=== PATIENT | female | born 1995 | race Caucasian/White ===

== ENCOUNTER 2016-11-05 08:10 | Emergency (ER) | payer SELFPAY ==
[2016-11-05 09:11] LABS: Bacteria,Urine 1+ /HPF (Negative); Bilirubin,Urine NEG (Negative); Blood,Urine NEG (Negative); Ketones,Urine NEG (Negative); Leukocyte Esterase,Urine NEG (Negative); Mucus,Urine 3+ /HPF; Nitrite,Urine NEG (Negative); Urobilinogen,Urine < 2.0 mg/dL (<2.0)
[2016-11-05 09:13] LABS: RBC,Urine < 1.0 /HPF (0.0-6.0)
--- NOTE | 2016-11-05 11:35 | Emergency Department Report ---
ED Female HPI - General Chief complaint: Urogenital-Female Stated complaint: NAUSEA/DISCHARGE/FATIGUE Time Seen by Provider: 11/05/16 11:00 Source: patient Mode of arrival: Ambulatory Limitations: No Limitations - History of Present Illness Initial comments: 21-year-old female with past medical history PID, chlamydia presents with complaint of one to 2 days of mild suprapubic discomfort and whitish vaginal discharge. Dates her last menstrual period was 10/27/16. Denies any fevers or chills slight nausea but no vomiting. Currently sexually active. States she has had an IUD in place for approximately 2 years Complaint: vaginal discharge Onset/Timin -: days(s) Location: suprapubic Radiation: non-radiating Severity: moderate Severity scale (0 -10): 5 Quality: aching Improves with: none Worsens with: none Are you Now?: No Last Menstrual Period: 10/27/16 EDC: 08/03/17 Associated Symptoms: denies other symptoms - Related Data Sexually active: Yes Previous Rx's Medication Instructions Recorded Last Taken Type Doxycycline [Vibramycin CAP] 100 mg PO Q12HR #28 capsule 11/05/16 Unknown Rx Allergies Allergy/AdvReac Type Severity Reaction Status Date / Time No Known Allergies Allergy Unverified 11/05/16 08:16 ED Review of Systems ROS: Stated complaint: NAUSEA/DISCHARGE/FATIGUE Other details as noted in HPI Constitutional: denies: chills, fever Eyes: denies: eye pain, eye discharge, vision change ENT: denies: ear pain, throat pain Respiratory: denies: cough, shortness of breath, wheezing Cardiovascular: denies: chest pain, palpitations Endocrine: no symptoms reported Gastrointestinal: denies: abdominal pain, nausea, diarrhea Genitourinary: as per HPI. denies: urgency, dysuria, discharge Musculoskeletal: denies: back pain, joint swelling, arthralgia Skin: denies: rash, lesions Neurological: denies: headache, weakness, paresthesias Psychiatric: denies: anxiety, depression Hematological/Lymphatic: denies: easy bleeding, easy bruising ED Past Medical Hx - Past Medical History Previous Medical History?: No - Surgical History Past Surgical History?: Yes Additional Surgical History: right arm surgery - Social History Smoking Status: Current Every Day Smoker Substance Use Type: Alcohol, Marijuana, Non Opiate Pain - Medications Home Medications: Home Medications Medication Instructions Recorded Confirmed Last Taken Type Doxycycline [Vibramycin CAP] 100 mg PO Q12HR #28 capsule 11/05/16 Unknown Rx ED Physical Exam - General Limitations: No Limitations General appearance: alert, in no apparent distress - Head Head exam: Present: atraumatic, normocephalic - Eye Eye exam: Present: normal appearance, PERRL, EOMI - ENT ENT exam: Present: mucous membranes moist - Neck Neck exam: Present: normal inspection - Respiratory Respiratory exam: Present: normal lung sounds bilaterally. Absent: respiratory distress - Cardiovascular Cardiovascular Exam: Present: regular rate, normal rhythm. Absent: systolic murmur, diastolic murmur, rubs, gallop - GI/Abdominal GI/Abdominal exam: Present: soft, normal bowel sounds - External exam: Present: normal external exam Speculum exam: Present: normal speculum exam Bi-manual exam: Present: normal bi-manual exam - Extremities Exam Extremities exam: Present: normal inspection, tenderness - Back Exam Back exam: Present: normal inspection, full ROM - Neurological Exam Neurological exam: Present: alert, oriented X3, CN II-XII intact, normal gait - Psychiatric Psychiatric exam: Present: normal affect, normal mood - Skin Skin exam: Present: warm, dry, intact, normal color. Absent: rash ED Course Vital Signs 11/05/16 11/05/16 08:16 13:28 Temperature 97.9 F Pulse Rate 73 59 L Respiratory 18 16 Rate Blood Pressure 100/63 Blood Pressure 98/60 [Right] O2 Sat by Pulse 97 99 Oximetry ED Medical Decision Making - Medical Decision Making A/P: Cervicitis versus early PID 1-on clinical exam patient has minimal to no CMT or adnexal tenderness however given patient's history of recurrent PID and chlamydial infection I will treat patient empirically with ceftriaxone and doxycycline and give outpatient [facility] follow-up 2-on ultrasound IUD is in normal position, string visualized during gynecological exam Critical care attestation.: If time is entered above; I have spent that time in minutes in the direct care of this critically ill patient, excluding procedure time. ED Disposition Clinical Impression: Cervicitis, History of PID Disposition: TO HOME OR SELFCARE Is pt being admited?: No Does the pt Need Aspirin: No Condition: Stable Instructions: Cervicitis (ED), Pelvic Inflammatory Disease (ED) Prescriptions: Doxycycline [Vibramycin CAP] 100 mg PO Q12HR #28 capsule Referrals: ARNALDO GONCALVES MD [Staff Physician] - 3-5 Days [facility] [Provider Group] - 3-5 Days Forms: STI Treatment and Prevention, Work/School Release Form(ED)
[2016-11-05 13:30] VITALS: BP 98/60
[2016-11-05] MEDS ORDERED: XYLOCAINE 1% MPF 5 mL INFILTRATI ONE (13:48)
[2016-11-05] MEDS ORDERED: ROCEPHIN IM ONE (13:48)
--- NOTE | 2016-11-05 14:18 | Ultrasound Report ---
ULTRASOUND PELVIS DUPLEX DOPPLER COMPLETE - TRANSABDOMINAL AND TRANSVAGINAL: INDICATION: Pelvic pain, IUD in place. COMPARISON: None similar at this institution. FINDINGS: Transabdominal and transvaginal pelvic sonography with spectral Doppler performed in this patient with LMP of 10/28/2016 and demonstrates a homogenous, anteverted 7.3 x 2.9 x 5.2 cm uterus with endometrial thickness of approximately 5 mm toward the fundus, endovaginal image 8. Small nabothian cyst. No significant free fluid. Right ovary is 3.5 x 1.9 x 2.1 cm with a 1.6 cm follicular cyst. Unremarkable left ovary measuring 3.6 x 1.7 x 2.1 cm. Preserved bilateral ovarian blood flow. CONCLUSION: Physiologic pelvic sonogram with an IUD noted, as described. Thank you for the opportunity to participate in this patient's care.
[2016-11-05] MEDS ORDERED: ZITHROMAX PO ONE (14:19)
== END 2016-11-05 14:34 | disposition home or self-care (01) ==
LOC: ED 08:10
DX: N72 Inflammatory disease of cervix uteri (principal); F17.200 Nicotine dependence, unspecified, uncomplicated; F12.90 Cannabis use, unspecified, uncomplicated
CPT/HCPCS: 76830; 81001; 81025; 87210; 87591; 93975; 96372; 99284; J0696